=== PATIENT | male | born 1960 | race Caucasian/White ===

== ENCOUNTER 2016-12-06 13:47 | Emergency (ER) | payer MEDICAID ==
[~2016-12-06] VITALS: Ht 172.7 cm; Wt 70.3 kg
[2016-12-06] MEDS ORDERED: LIDOCAINE 1%-EPI 1:100,000 20 ML VIAL TP ONE (14:15)
[2016-12-06] MEDS ORDERED: CEPHALEXIN MONOHYDRATE 500 MG CAPSULE PO ONE (15:45)
[2016-12-06] MEDS ORDERED: SULFAMETH/TRIMETH 800/160 MG TABLET PO ONE (15:45)
--- NOTE | 2016-12-06 15:51 | NUR ---
ROMAN COMPLETED, I ANDD LEFT SMALL FINGER MASS, I THEN ADMIISTERED MEDS. SITE WAS THEN CLEANED AND DRESSING PLAVED TO SITE. PT D/C'D HOME, ACI/RX X2 GIVEN. T TOOK ALL BELONGINGS.
[2016-12-06 15:53] VITALS: BP 142/74
[2016-12-06] MEDS ORDERED: CEPHALEXIN MONOHYDRATE 500 MG CAPSULE ONE (15:56)
[2016-12-06] MEDS ORDERED: SULFAMETH/TRIMETH 800/160 MG TABLET ONE (15:56)
== END 2016-12-06 15:54 | disposition home or self-care (01) ==
LOC: ER 13:47
DX: L02.512 Cutaneous abscess of left hand (principal); L03.012 Cellulitis of left finger; F17.200 Nicotine dependence, unspecified, uncomplicated; Z59.0 Homelessness
CPT/HCPCS: A4663; J3490

== ENCOUNTER 2017-03-11 08:05 | Emergency (ER) | payer SELFPAY ==
[~2017-03-11] VITALS: Ht 172.7 cm; Wt 72.6 kg
[2017-03-11] MEDS: predniSONE 50 MG TABLET PO ONE (08:24)
[2017-03-11] MEDS: diphenhydrAMINE 25 MG CAP PO ONE (08:24)
--- NOTE | 2017-03-11 08:24 | NUR ---
PT IS IN ROOM #2B. DR HECTOR EVALUATED THE PT.
[2017-03-11] MEDS ORDERED: diphenhydrAMINE 25 MG CAP PO ONE (08:35)
[2017-03-11] MEDS ORDERED: predniSONE 50 MG TABLET ONE (08:35)
--- NOTE | 2017-03-11 08:43 | NUR ---
PT WAS D/C TO HOME. D/C INSTRUCTIONS GIVEN TO THE PT.
[2017-03-11 08:45] VITALS: BP 132/76
== END 2017-03-11 08:45 | disposition home or self-care (01) ==
LOC: ER 08:05
DX: T63.441A Toxic effect of venom of bees, accidental (unintentional), initial encounter (principal); F17.200 Nicotine dependence, unspecified, uncomplicated; Z59.0 Homelessness; Y92.9 Unspecified place or not applicable
CPT/HCPCS: A4663; J7512; Q0163

== ENCOUNTER 2024-12-19 09:45 | Emergency (ER) | payer BC, MEDICAID ==
[~2024-12-19] VITALS: Ht 172.7 cm; Wt 80.3 kg
[2024-12-19] MEDS ORDERED: diphenhydrAMINE 50 MG/1 ML VIAL ONE (10:17)
[2024-12-19] MEDS ORDERED: methylPREDNISolone SOD SUCC 125 MG/2 ML VIAL ONE (10:17)
[2024-12-19] MEDS ORDERED: FAMOTIDINE. 20 MG/2 ML VIAL IV ONE (10:18)
[2024-12-19] MEDS: diphenhydrAMINE 50 MG/1 ML VIAL IV ONE (10:21)
[2024-12-19] MEDS: FAMOTIDINE. 20 MG/2 ML VIAL IV ONE (10:21)
[2024-12-19] MEDS: methylPREDNISolone SOD SUCC 125 MG/2 ML VIAL IV ONE (10:21)
[2024-12-19] MEDS ORDERED: CLONIDINE HCL 0.2 MG TABLET ONE (11:03)
[2024-12-19] MEDS: CLONIDINE HCL 0.2 MG TABLET PO ONE (11:05)
[2024-12-19 12:26] LABS: BASOPHILS % (AUTO) 0.5 % (0.0-2.0); EOSINOPHILS # (AUTO) 0.1 K/uL (0.0-0.7); EOSINOPHILS % (AUTO) 1.9 % (0.0-7.0); HEMOGLOBIN 15.1 g/dL (12.5-16.3); LYMPHOCYTES # (AUTO) 1.4 K/uL (0.8-4.8); MEAN CORPUSCULAR HEMOGLOBIN 30.9 uug (23.8-33.4); MEAN CORPUSCULAR HGB CONC 34 g/dL (32.5-36.3); MEAN CORPUSCULAR VOLUME 90.3 fL (73.0-96.2); MONOCYTES # (AUTO) 0.7 K/uL (0.1-1.30); MONOCYTES % (AUTO) 11.1 % (0.0-11.0); NEUTROPHILS % (AUTO) 64.5 % (38.5-71.5); PLATELET COUNT (AUTO) 132 K/uL (152-348); RED BLOOD CELL COUNT(AUTO) 4.87 MIL/uL (4.06-5.63); RED CELL DISTRIBUTION WIDTH 13.6 % (12.1-16.2); WHITE BLOOD COUNT (AUTO) 6.1 K/uL (3.6-10.2)
[2024-12-19 12:34] LABS: DIFFERENTIAL COMMENT 1
[2024-12-19 12:39] LABS: CALCIUM 8.8 mg/dL (8.5-10.1); CREATININE 1.3 mg/dL (0.6-1.3); POTASSIUM 4.1 mmol/L (3.5-5.1)
[2024-12-19 12:45] LABS: ALBUMIN 3.9 g/dL (3.4-5.0); BILIRUBIN,TOTAL 1.7 mg/dL (0.2-1.0); TOTAL PROTEIN, SERUM 7.7 g/dL (6.4-8.2)
[2024-12-19] MEDS: LOSARTAN POTASSIUM 50 MG TABLET PO ONE (13:04)
[2024-12-19] MEDS ORDERED: LOSA50TA39 PO (13:07)
[2024-12-19 13:31] VITALS: BP 182/119; TEMP 98.1; O2SAT 97
== END 2024-12-19 13:31 | disposition home or self-care (01) ==
LOC: ER 09:45
DX: I10 Essential (primary) hypertension (principal); T63.441A Toxic effect of venom of bees, accidental (unintentional), initial encounter; F17.200 Nicotine dependence, unspecified, uncomplicated; Z59.00 Homelessness unspecified; Z88.7 Allergy status to serum and vaccine; Z87.2 Personal history of diseases of the skin and subcutaneous tissue; Z91.030 Bee allergy status; Y92.89 Other specified places as the place of occurrence of the external cause
CPT/HCPCS: 99284; 96374; 96375; 80061; 80053; 85025; 36415; J2919; J1200; J1308; A4606; A4663

== ENCOUNTER 2025-05-07 11:43 | Emergency (ER) | payer BC, MEDICAID ==
[~2025-05-07] VITALS: Ht 172.7 cm; Wt 72.6 kg
[~2025-05-07 11:43] MED LIST: LOSA50TA39 PO
[2025-05-07 11:55] VITALS: BP 181/118
[2025-05-07 13:23] VITALS: BP 169/89; O2SAT 95
[2025-05-07] MEDS ORDERED: IBUP-1957 PO (13:26)
[2025-05-07] MEDS ORDERED: IBUPROFEN 800 MG TABLET ONE (13:28)
[2025-05-07] MEDS ORDERED: IBUPROFEN 800 MG TABLET PO ONE (13:30)
== END 2025-05-07 13:38 | disposition home or self-care (01) ==
LOC: ER 12:04
DX: M79.671 Pain in right foot (principal); S96.911A Strain of unspecified muscle and tendon at ankle and foot level, right foot, initial encounter; I11.9 Hypertensive heart disease without heart failure; F17.210 Nicotine dependence, cigarettes, uncomplicated; Z79.899 Other long term (current) drug therapy; Z88.7 Allergy status to serum and vaccine; Z91.030 Bee allergy status; X58.XXXA Exposure to other specified factors, initial encounter; Y93.89 Activity, other specified; Y92.89 Other specified places as the place of occurrence of the external cause; Y99.8 Other external cause status
CPT/HCPCS: 73620; A4606; A4663